=== PATIENT | male | born 1990 | race Caucasian/White ===

== ENCOUNTER 2017-07-27 15:55 | Emergency (ER) | payer SELFPAY ==
[2017-07-27] MEDS ORDERED: Adacel (T-DAP) 0.5 ML VIAL ONE (16:07)
[2017-07-27] MEDS ORDERED: Ketorolac Tromethamine 30 MG/ML VIAL ONE (16:21)
[2017-07-27] MEDS ORDERED: Lidocaine 1% (PF) 30 ML VIAL ONE (16:24)
--- NOTE | 2017-07-27 17:09 | RAD ---
THREE VIEWS LEFT THUMB: COMPARISON: None. HISTORY: Hit thumb and hand with a sledge hammer with laceration in the thumb. FINDINGS: Three views left thumb show no evidence of acute fracture or dislocation. There is soft tissue swel ling of the thumb web space. No radiopaque foreign body is seen. IMPRESSION: No evidence of acute fracture or dislocation. POS: [facility]
== END 2017-07-27 17:22 | disposition home or self-care (01) ==
LOC: ERS 15:55
DX: S61.012A Laceration without foreign body of left thumb without damage to nail, initial encounter (principal); F17.210 Nicotine dependence, cigarettes, uncomplicated; W23.1XXA Caught, crushed, jammed, or pinched between stationary objects, initial encounter
CPT/HCPCS: 12001; 90471; 90715; 96372; J1885; J2001

== ENCOUNTER 2017-10-17 10:28 | Emergency (ER) | payer SELFPAY ==
--- NOTE | 2017-10-17 11:53 | RAD ---
FOUR VIEWS LEFT KNEE: Date: 10-17-17 History: Severe left knee pain. No history of trauma. FINDINGS: There is no evidence of fracture, dislocation, or other osseous abnormality involving the left knee. IMPRESSION: No acute osseous abnormality. POS: [facility]
[2017-10-17] MEDS ORDERED: Ketorolac Tromethamine 30 MG/ML VIAL ONE (11:55)
== END 2017-10-17 12:22 | disposition home or self-care (01) ==
LOC: ERS 10:28
DX: S83.92XA Sprain of unspecified site of left knee, initial encounter (principal); F17.210 Nicotine dependence, cigarettes, uncomplicated; X50.9XXA Other and unspecified overexertion or strenuous movements or postures, initial encounter
CPT/HCPCS: 96372; J1885